=== PATIENT | female | born 1960 | race African-American/Black ===

== ENCOUNTER 2019-04-11 15:41 | Inpatient (IN) | payer BC, SELFPAY ==
[2019-04-11] MEDS ORDERED: Heparin 10,000 UNITS/1 ML VIAL ONE (16:04)
[2019-04-11] MEDS ORDERED: Atropine Sulfate 1 mg/10 ml Syringe ONE (16:05)
[2019-04-11] MEDS ORDERED: Heparin 0 ML ONE (16:05)
[2019-04-11] MEDS ORDERED: Ondansetron PF 4 MG/2 ML Vial ONE (16:14)
[2019-04-11] MEDS ORDERED: DOPamine 400 MG/D5W 250 ML 250 ML ONE (16:15)
[2019-04-11] MEDS ORDERED: Fentanyl 100 MCG/2 ML VIAL ONE (16:37)
[2019-04-11] MEDS ORDERED: traMADol HCl 50 MG TAB PO PRN (16:51)
[2019-04-11] MEDS ORDERED: Mag-Al 1200 mg/1200 mg/30 ML UDCUP PO PRN (16:51)
[2019-04-11] MEDS ORDERED: Nitroglycerin 0.4 MG TAB (25 Tab Bottle) SL PRN (16:51)
[2019-04-11] MEDS ORDERED: Milk Of Magnesia 30 ML UDCUP PO PRN (16:51)
[2019-04-11] MEDS ORDERED: Morphine 2 MG/ML SYRINGE SLOW IVP PRN (16:51)
[2019-04-11] MEDS ORDERED: Zolpidem Tartrate 5 MG TAB PO PRN (16:51)
[2019-04-11] MEDS ORDERED: Acetaminophen/Codeine 30-300mg Tablet PO PRN (16:51)
[2019-04-11] MEDS ORDERED: Sodium Chloride 0.9% 1,000 ML IV SCH (17:00)
[2019-04-11 17:15] VITALS: BMI 34.0
--- NOTE | 2019-04-11 17:27 | HP ---
REASON FOR ADMISSION: Chest pain. HISTORY OF PRESENT ILLNESS: Ms. Alan is a pleasant 59-year-old female, who comes to the hospital via EMS. She started having chest pain 30 minutes before arriving to the hospital. She was driving at that time. It was substernal chest discomfort, rated it 8/10. EMS was called, they came in, did an EKG and showed inferior ST elevation, so she was brought in emergently. We took her up to the catheterization lab in an emergent fashion where she had a heart catheterization emergently. She was found to have an occluded RCA distally. This was wired, ballooned initially. A large amount of thrombus was seen, so manual thrombectomy was done and a large amount of red thrombus was taken out. She was in complete heart block as well at that time. As soon as her artery was open, she regained conduction and she was in sinus rhythm in the 80s and pain improved. Drug-eluting stent was placed successfully and an Angio-Seal closure device was deployed in the right femoral artery site. She did well. No residual disease on the left circulation. LV function was normal on LV gram with mildly elevated LVEDP. PAST MEDICAL HISTORY: 1. Hypothyroidism. 2. Hypertension. SOCIAL HISTORY: No alcohol, tobacco, or drugs. ALLERGIES: NO KNOWN DRUG ALLERGIES. OUTPATIENT MEDICATIONS: She will bring a list of her medications. REVIEW OF SYSTEMS: A 12-point review of systems was done and was all negative unless stated in the history of present illness. PHYSICAL EXAMINATION: VITAL SIGNS: Temperature 98.2, pulse 82, respiratory rate 16, saturating 98% on 2 L nasal cannula, blood pressure 128/62. GENERAL: Awake, alert, oriented x3, in no distress. HEENT: Normocephalic, atraumatic. NECK: Supple. LUNGS: Clear. CARDIOVASCULAR: S1 and S2. No S3 or S4. No murmurs. ABDOMEN: Soft. Positive bowel sounds. EXTREMITIES: No edema. SKIN: Warm and dry. LABORATORY DATA: Laboratory work was reviewed. available. Other blood work is pending. EKG was reviewed, ST elevation inferiorly with complete heart block, junctional escape rhythm in the 50s. ASSESSMENT: 1. Acute inferior ST-elevation myocardial infarction. 2. Complete heart block. 3. Hypertension. 4. Hypothyroidism. PLAN: 1. Status post drug-eluting stent to the distal RCA. A 2.25 drug-eluting stent supposed to 2.6 mm. Good results. 2. Brilinta twice a day with low-dose aspirin. 3. High dose statin. 4. We will have her bring her outpatient medications and will restart them in the next few days once her blood pressure allows. Currently, her blood pressure is still on the low side. 5. Full code. 6. Disposition, pending clinical evolution. Job ID: [id number]
[2019-04-11 17:52] LABS: CKMB 7.6 ng/mL (0-6.6); Troponin I 0.574 ng/mL (< 0.028)
[2019-04-11] MEDS: Atorvastatin Calcium 40 MG TAB PO SCH (21:33)
[2019-04-11] MEDS: TICAGRELOR 90 MG TABLET PO SCH (21:41)
[2019-04-12 00:03] LABS: CKMB 32.4 ng/mL (0-6.6); Troponin I 6.603 ng/mL (< 0.028)
[2019-04-12 05:25] LABS: #Basophils 0.1 thou/uL (0.0-0.2); #Eosinphils 0.2 thou/uL (0.0-0.7); #Lymphocytes 2.5 thou/uL (1.20-3.40); #Monocytes 0.7 thou/uL (0.11-0.59); %Basophils 0.6 % (0.0-1.0); %Eosinophils 1.9 % (0.0-10.0); %Lymphocytes 23.6 % (21.0-51.0); %Monocytes 6.7 % (0.0-10.0); %Neutrophils 67.3 % (42.0-75.0); Hemoglobin 13.4 g/dL (12.0-16.0); Mean Corpuscular HGB CONC 33.9 g/dL (32.0-36.0); Mean Corpuscular Hemoglobin 30.5 pg (27.0-31.0); Mean Corpuscular Volume 89.9 fL (78.0-98.0); Mean Platelet Volume 7.4 fL (7.4-10.4); Platelet Count 753 thou/uL (130-400); White Blood Cell (WBC) Count 10.4 thou/uL (4.8-10.8)
[2019-04-12 06:04] LABS: ALT (SGPT) 23 U/L (8-55); AST (SGOT) 51 U/L (5-34); Albumin 3.8 g/dL (3.5-5.0); Alkaline Phosphatase 61 U/L (40-110); Anion Gap 10 mmol/L (10-20); BUN (Urea Nitrogen) 10 mg/dL (9.8-20.1); Bilirubin, Total 0.6 mg/dL (0.2-1.2); Calc. Creatinine Clearance 127 mL/min (70-130); Calcium 8.5 mg/dL (7.8-10.44); Carbon Dioxide 26 mmol/L (22-29); Cardiac Risk 3.4 (Less than 4.5); Chloride 108 mmol/L (98-107); Cholesterol 166 mg/dl (< 200 Desired); Estimated GFR-MDRD 74; Globulin 2.5 g/dL (2.4-3.5); Glucose 84 mg/dL (70-105); HDL Cholesterol 49 mg/dL (>60 Neg Risk); LDL Cholesterol, Calculated 102 mg/dL; Potassium 3.4 mmol/L (3.5-5.1); Protein, Total 6.3 g/dL (6.0-8.3); Sodium 141 mmol/L (136-145); Triglycerides 75 mg/dL (Less than 150)
[2019-04-12 06:09] LABS: Thyroid Stimulating Hormone 1.3209 uIU/mL (0.35-4.94)
[2019-04-12 06:55] LABS: Free T4 (Free Thyroxine) 1.07 ng/dL (0.70-1.48)
[2019-04-12] MEDS ORDERED: FLU VACC QS2019-20(6MOS UP)/PF 60 MCG/0.5 ML SYRINGE IM ONE (09:00)
[2019-04-12] MEDS ORDERED: Potassium Chloride 20 MEQ TAB PO SCH (09:00)
[2019-04-12] MEDS: Aspirin Chewable 81 MG TAB PO SCH (09:04)
[2019-04-12] MEDS: TICAGRELOR 90 MG TABLET PO SCH ×2 (09:04→20:33)
--- NOTE | 2019-04-12 18:22 | PDOC.CPN ---
- Subjective Date: 04/12/19 Time: 18:19 Interval history: She is doing well. No more chest pain. Has walked with PT and felt well. - Review of Systems General: denies: fever/chills, weight/appetite/sleep changes, night sweats, fatigue Respiratory: denies: cough, congestion, shortness of breath, exercise intolerance Cardiovascular: denies: chest pain, palpitation, edema, paroxysmal nocturnal dyspnea, orthopnea Gastrointestinal: denies: nausea, vomiting, diarrhea, constipation, abd pain, GI bleeding Musculoskeletal: denies: pain, tenderness, stiffness, swelling, arthritis/ arthralgias Neurological: denies: numbness, syncope, seizure, weakness - Objective Allergies/Adverse Reactions: Allergies Allergy/AdvReac Type Severity Reaction Status Date / Time No Known Allergies Allergy Unverified 04/11/19 17:01 Visit Medications: Current Medications Acetaminophen/Codeine Phosphate (Tylenol #3) 1 tab PO Q4H PRN PRN Reason: Mild Pain (1-3) Al Hydroxide/Mg Hydroxide (Maalox) 30 ml PO Q3H PRN PRN Reason: Indigestion Aspirin (Aspirin Chewable) 81 mg PO DAILY [facility] Last Admin: 04/12/19 09:04 Dose: 81 mg Atorvastatin Calcium (Lipitor) 80 mg PO HS [facility] Last Admin: 04/11/19 21:33 Dose: 80 mg Magnesium Hydroxide (Milk Of Magnesium) 30 ml PO Q12H PRN PRN Reason: Constipation Morphine Sulfate (Morphine) 2 mg SLOW IVP Q4H PRN PRN Reason: Moderate Chest Pain (4-6) Nitroglycerin (Nitrostat) 0.4 mg SL Q5MIN PRN PRN Reason: Chest Pain Ticagrelor (Brilinta) 90 mg PO BID [facility] Last Admin: 04/12/19 09:04 Dose: 90 mg Tramadol HCl (Ultram) 50 mg PO Q6H PRN PRN Reason: Pain Zolpidem Tartrate (Ambien) 5 mg PO HSPRN PRN PRN Reason: Insomnia Vital Signs & Weight: Vital Signs Temp Pulse Pulse BP BP Pulse Ox Pulse Ox 04/12/19 12:00 98.2 F 04/12/19 10:00 62 68 149/96 H 129/79 97 04/12/19 07:59 96 04/12/19 07:00 98.8 F Pulse Ox 04/12/19 12:00 04/12/19 10:00 96 04/12/19 07:59 04/12/19 07:00 Weight 230 lb 9.656 oz - Physical Exam General: alert & oriented x3, no apparent distress HEENT: mucus membranes moist, normocephaly Neck: supple neck Cardiac: regular rate and rhythm, no murmur Lungs: clear to auscultation, no wheeze, rales, rhonchi Neuro: grossly intact, coordination normal Abdomen: active bowel sounds, soft, non-tender Extremities: no cyanosis, no clubbing, no edema Skin: clear Musculoskeletal: no pain - Labs Result Diagrams: 04/12/19 04:36 04/12/19 04:36 Troponin/CKMB CK-MB (CK-2) 32.4 ng/mL (0-6.6) H* 04/11/19 23:20 Troponin I 6.603 ng/mL (< 0.028) H* 04/11/19 23:20 - Telemetry Sinus rhythms and dysrhythmias: sinus rhythm - Assessment/Plan Assessment/Plan: 1. Acute inferior STEMI 2. 3rd degree AV block, resolved. 3. HTN PLAN: - Will restart home meds. - Will stop home Amlodipine and clonidine - Will add low dose BB and ACEI. - Transfer to telemetry. - Home in next 24 to 48 hrs if she remains stable. - Critical Care Time Critical care time (mins): 30
[2019-04-12] MEDS: Atorvastatin Calcium 40 MG TAB PO SCH (20:33)
[2019-04-12] MEDS: Zolpidem Tartrate 5 MG TAB PO SCH (20:34)
[2019-04-13] MEDS: Levothyroxine Sodium 100 MCG TAB PO SCH (05:06)
[2019-04-13 06:06] LABS: #Basophils 0.1 thou/uL (0.0-0.2); #Eosinphils 0.2 thou/uL (0.0-0.7); #Lymphocytes 1.9 thou/uL (1.20-3.40); #Monocytes 0.6 thou/uL (0.11-0.59); %Basophils 0.7 % (0.0-1.0); %Eosinophils 1.9 % (0.0-10.0); %Lymphocytes 21.6 % (21.0-51.0); %Monocytes 6.5 % (0.0-10.0); %Neutrophils 69.3 % (42.0-75.0); Hemoglobin 14.3 g/dL (12.0-16.0); Mean Corpuscular HGB CONC 34.2 g/dL (32.0-36.0); Mean Corpuscular Hemoglobin 30.4 pg (27.0-31.0); Mean Corpuscular Volume 88.8 fL (78.0-98.0); Mean Platelet Volume 7.1 fL (7.4-10.4); Platelet Count 710 thou/uL (130-400); RBC Distribution Width 13.9 % (11.5-14.5); White Blood Cell (WBC) Count 8.7 thou/uL (4.8-10.8)
[2019-04-13 06:35] LABS: Anion Gap 13 mmol/L (10-20); BUN (Urea Nitrogen) 12 mg/dL (9.8-20.1); Calc. Creatinine Clearance 121 mL/min (70-130); Calcium 8.8 mg/dL (7.8-10.44); Carbon Dioxide 25 mmol/L (22-29); Chloride 105 mmol/L (98-107); Estimated GFR-MDRD 70; Glucose 87 mg/dL (70-105); Potassium 3.7 mmol/L (3.5-5.1); Sodium 139 mmol/L (136-145)
[2019-04-13] MEDS: Carvedilol 3.125 MG TAB PO SCH ×2 (08:32→17:41)
[2019-04-13] MEDS: Lisinopril 2.5 MG TAB PO SCH (08:32)
[2019-04-13] MEDS: TICAGRELOR 90 MG TABLET PO SCH ×2 (08:32→20:23)
[2019-04-13] MEDS: Aspirin Chewable 81 MG TAB PO SCH (08:32)
[2019-04-13] MEDS: Atorvastatin Calcium 40 MG TAB PO SCH (20:22)
[2019-04-13] MEDS: Zolpidem Tartrate 5 MG TAB PO SCH (20:23)
[2019-04-14 05:12] LABS: #Basophils 0.1 thou/uL (0.0-0.2); #Eosinphils 0.2 thou/uL (0.0-0.7); #Monocytes 0.8 thou/uL (0.11-0.59); %Basophils 0.8 % (0.0-1.0); %Eosinophils 2.1 % (0.0-10.0); %Lymphocytes 22.5 % (21.0-51.0); %Monocytes 8.3 % (0.0-10.0); %Neutrophils 66.4 % (42.0-75.0); Hemoglobin 14.3 g/dL (12.0-16.0); Mean Corpuscular Hemoglobin 30.1 pg (27.0-31.0); Mean Corpuscular Volume 88.6 fL (78.0-98.0); Mean Platelet Volume 7.2 fL (7.4-10.4); Platelet Count 745 thou/uL (130-400); RBC Distribution Width 13.9 % (11.5-14.5); Red Blood Cell (RBC) Count 4.76 mill/uL (4.20-5.40); White Blood Cell (WBC) Count 9.1 thou/uL (4.8-10.8)
[2019-04-14] MEDS: Levothyroxine Sodium 100 MCG TAB PO SCH (05:42)
[2019-04-14 05:46] LABS: Anion Gap 15 mmol/L (10-20); BUN (Urea Nitrogen) 16 mg/dL (9.8-20.1); Calc. Creatinine Clearance 114 mL/min (70-130); Carbon Dioxide 24 mmol/L (22-29); Chloride 103 mmol/L (98-107); Estimated GFR-MDRD 79; Glucose 88 mg/dL (70-105); Potassium 3.7 mmol/L (3.5-5.1); Sodium 138 mmol/L (136-145)
[2019-04-14] MEDS: Lisinopril 2.5 MG TAB PO SCH (08:58)
[2019-04-14] MEDS: Aspirin Chewable 81 MG TAB PO SCH (08:58)
[2019-04-14] MEDS: Carvedilol 3.125 MG TAB PO SCH ×2 (08:58→16:58)
[2019-04-14] MEDS: TICAGRELOR 90 MG TABLET PO SCH (08:59)
--- NOTE | 2019-04-14 14:41 | EKG ---
Test Reason : Blood Pressure : / mmHG Vent. Rate : 058 BPM Atrial Rate : 059 BPM P-R Int : 000 ms QRS Dur : 084 ms QT Int : 492 ms P-R-T Axes : 000 018 135 degrees QTc Int : 482 ms Poor data quality, interpretation may be adversely affected Age and gender specific ECG analysis 3rd Degree Heart Block ST elevation consider inferior injury or acute infarct Prolonged QT * ACUTE UT * Consider right ventricular involvement in acute inferior infarct Abnormal ECG Confirmed by COLETTE BRANNON DO ([id number]), scientific editor SACHIN QUIROZ ([id number] on 04/14/2019 2:41:06 PM Referred By: Confirmed By:COLETTE BRANNON DO
[2019-04-14 16:00] VITALS: BP 89/51; TEMP 98.9
--- NOTE | 2019-04-16 22:55 | EKG ---
Test Reason : Blood Pressure : / mmHG Vent. Rate : 082 BPM Atrial Rate : 082 BPM P-R Int : 170 ms QRS Dur : 068 ms QT Int : 434 ms P-R-T Axes : 031 000 -23 degrees QTc Int : 507 ms Normal sinus rhythm T wave abnormality, consider anterior ischemia Abnormal ECG No previous ECGs available Confirmed by TANO FABIAN M.D. ([id number] on 04/16/2019 10:55:13 PM Referred By: Confirmed By:TANO FABIAN M.D.
--- NOTE | 2019-04-16 22:59 | EKG ---
Test Reason : ROUTINE Blood Pressure : / mmHG Vent. Rate : 066 BPM Atrial Rate : 066 BPM P-R Int : 156 ms QRS Dur : 078 ms QT Int : 456 ms P-R-T Axes : 034 001 -44 degrees QTc Int : 478 ms Normal sinus rhythm T wave abnormality, consider inferior ischemia Prolonged QT Abnormal ECG When compared with ECG of 11-APR-2019 17:13, (Unconfirmed) No significant change was found Confirmed by TANO FABIAN M.D. ([id number] on 04/16/2019 10:58:41 PM Referred By: TANO FABIAN Confirmed By:TANO FABIAN M.D.
== END 2019-04-14 19:36 | disposition home or self-care (01) | DRG 247 ==
LOC: ERS 15:41 → CCU 16:24 → 2SE 04-13 16:08
PROVIDERS: ADMIT Internal Medicine Cardiovascular Disease; ATTEND Internal Medicine Cardiovascular Disease
PROC: 027034Z Dilation of Coronary Artery, One Artery with Drug-eluting Intraluminal Device, Percutaneous Approach (ICD-10-PCS; principal; 2019-04-11)
PROC: 02C03ZZ Extirpation of Matter from Coronary Artery, One Artery, Percutaneous Approach (ICD-10-PCS; 2019-04-11)
PROC: B2111ZZ Fluoroscopy of Multiple Coronary Arteries using Low Osmolar Contrast (ICD-10-PCS; 2019-04-11)
PROC: B2151ZZ Fluoroscopy of Left Heart using Low Osmolar Contrast (ICD-10-PCS; 2019-04-11)
DX: I21.19 ST elevation (STEMI) myocardial infarction involving other coronary artery of inferior wall (principal); I44.2 Atrioventricular block, complete; I25.10 Atherosclerotic heart disease of native coronary artery without angina pectoris; E03.9 Hypothyroidism, unspecified; I10 Essential (primary) hypertension; Z79.899 Other long term (current) drug therapy; Z79.82 Long term (current) use of aspirin
CPT/HCPCS: 36415; 76942; 80048; 80053; 80061; 82553; 83880; 84439; 84443; 84484; 85025; 85347; 90471; 90686; 92941; 92973; 93005; 93010; 93306; 93454; 93798; C1725; C1760; C1769; C1887; C9606; G0008; J0461; J1265; J1644; J2405; J3010